=== PATIENT | male | born 1985 | race Two or more races ===

== ENCOUNTER 2024-02-17 08:22 | Day surgery (SDC) | payer OTHER ==
[2024-02-16 14:25] LABS: Urine Bacteria None Seen /hpf (None Seen)
[2024-02-16 14:31] LABS: Basophils # (auto) 0.1 10 ^3/uL (0-0.2); Basophils % (auto) 0.6 % (0.0-2.0); Eosinophils # (auto) 0.1 10 ^3/uL (0-0.8); Eosinophils % (auto) 1.2 % (0.0-7.0); Hematocrit 47.7 % (41.0-53.0); Hemoglobin 16.2 g/dL (13.5-17.5); Lymphocytes # (auto) 1.6 10 ^3/uL (0.4-5.4); Lymphocytes % (auto) 16.2 % (10.0-50.0); Mean Corpuscular Hemoglobin 31.1 pg (28.0-32.0); Mean Corpuscular Hgb Conc. 33.9 g/dL (32.0-36.0); Mean Corpuscular Volume 91.9 fL (80.0-100.0); Monocytes # (auto) 0.5 10 ^3/uL (0-1.3); Monocytes % (auto) 5.4 % (0.0-12.0); Neutrophils # (auto) 7.8 10 ^3/uL (1.6-8.6); Neutrophils % (auto) 76.6 % (37.0-80.0); Nucleated Red Blood Cells % 0.1 %; Platelet Count (auto) 159 10^3/uL (140-450); Red Blood Cells 5.19 10^6/uL (4.5-5.90); White Blood Cell 10.1 10^3/uL (4.4-10.8)
[2024-02-16 14:42] LABS: Urine Blood Negative /uL (Negative); Urine Clarity Clear (Clear); Urine Color Light-Yellow (Yellow); Urine Protein, UAD Negative (Negative); Urine Specific Gravity 1.021 (1.001-1.035); Urine Urobilinogen Normal (Negative); Urine WBC <1 /hpf (0 - 3)
[2024-02-16 14:47] LABS: INR 1.06 (0.9-1.15); Partial Thromboplastin Time 26.4 SEC (24.5-34.5); Prothrombin Time 11.2 sec (9.3-11.8)
[2024-02-16 15:07] LABS: Alanine Aminotransferase 27 U/L (7-40); Albumin 4.4 g/dL (3.2-4.8); Alkaline Phosphatase 103 U/L (46-116); Anion Gap 7 (5-15); BUN/Creatinine Ratio 19.2 (10.0-20.0); Blood Urea Nitrogen 20 mg/dL (9-23); Calcium 9.5 mg/dL (8.7-10.4); Carbon Dioxide 29 mmol/L (20-30); Chloride 104 mmol/L (98-107); Glucose 104 mg/dL (74-106); Potassium 4.3 mmol/L (3.5-5.1); Sodium 140 mmol/L (136-145)
[2024-02-16 15:08] LABS: Bilirubin, Total 0.6 mg/dL (0.2-1.0); Total Protein 6.9 g/dL (5.7-8.2)
[2024-02-16 15:41] LABS: Aspartate Aminotransferase 11 U/L (13-40)
[~2024-02-17] VITALS: Ht 170.2 cm; Wt 72.6 kg
[2024-02-17] MEDS ORDERED: PHENYLEPHRINE HCL 10 MG/ML VL IV ONE (08:23)
[2024-02-17] MEDS ORDERED: ceFAZolin 2 GM/D5W50ml 50 ML IV ONE (08:32)
[2024-02-17] MEDS ORDERED: fentaNYL CITRATE 100 MCG/2 ML VL ONE (08:56)
[2024-02-17] MEDS ORDERED: MEPERIDINE HCL (25 MG/ML) 1ML VIAL ONE (08:56)
[2024-02-17] MEDS ORDERED: PROPOFOL 10 MG/ML 20 ML IV ONE (08:56)
[2024-02-17] MEDS ORDERED: DexAMETHasone SOD PHOS 10MG/1ML VIAL INJ ONE (08:56)
[2024-02-17] MEDS ORDERED: MIDAZOLAM HCL 2MG/2ML 2ml VIAL (1mg/ml) ONE (08:56)
[2024-02-17] MEDS ORDERED: ePHEDrine SULFATE 50 MG/ML AMP IV PRN (09:30)
[2024-02-17] MEDS ORDERED: MORPHINE SULFATE 4 MG/ML SYR/VIAL IV PRN (09:30)
[2024-02-17] MEDS ORDERED: ONDANSETRON HCL 4 MG/2 ML VIAL IV ONE (09:30)
[2024-02-17] MEDS ORDERED: hydrALAZINE HCL 20 MG/ML VL IV PRN (09:30)
[2024-02-17] MEDS ORDERED: MIDAZOLAM HCL 2MG/2ML 2ml VIAL (1mg/ml) IV PRN (09:30)
[2024-02-17 10:55] VITALS: RESP 12; TEMP 97.8; O2SAT 100
[2024-02-17] MEDS: KETOROLAC TROMETH 30 MG/ML 1ML VIAL IV ONE (11:04)
[2024-02-17] MEDS: HYDROmorphone HCL 2 MG/ML VL/or syr IV PRN (11:24)
[2024-02-17] MEDS ORDERED: oxyCODONE HCL 5MG TAB PO PRN (11:30)
[2024-02-17 12:06] VITALS: BP 132/54; PULSE 73; RESP 12; O2SAT 99
== END 2024-02-17 12:15 | disposition home or self-care (01) ==
LOC: SUR 08:22
PROVIDERS: ATTEND Orthopaedic Surgery
DX: S46.212A Strain of muscle, fascia and tendon of other parts of biceps, left arm, initial encounter (principal); M10.9 Gout, unspecified; X58.XXXA Exposure to other specified factors, initial encounter; Y93.89 Activity, other specified; Y92.89 Other specified places as the place of occurrence of the external cause; Y99.8 Other external cause status
CPT/HCPCS: 24342; 36415; 73070; 80053; 81001; 85025; 85610; 85730; J0690; J1100; J1170; J1885; J2175; J2250; J2371; J2704; J3010; 76000